=== PATIENT | female | born 1960 | race Two or more races ===

== ENCOUNTER 2018-02-10 13:45 | Emergency (ER) | payer MEDICAID ==
[~2018-02-10] VITALS: Ht 167.6 cm; Wt 113.4 kg
[2018-02-10 14:34] VITALS: BP 130/86
[2018-02-10] MEDS ORDERED: KETOROLAC TROMETH 60MG/2ML VIAL IM ONE (14:45)
[2018-02-10] MEDS ORDERED: metFORMIN HYDROCHLORIDE 500 MG TAB PO ONE (15:15)
== END 2018-02-10 16:05 | disposition home or self-care (01) ==
LOC: ER 13:45
DX: G89.29 Other chronic pain (principal); M54.5 Low back pain; E11.9 Type 2 diabetes mellitus without complications; E78.5 Hyperlipidemia, unspecified; I10 Essential (primary) hypertension; Z88.6 Allergy status to analgesic agent
CPT/HCPCS: 81002; 82962; 96372; 99283; J1885

== ENCOUNTER → 2021-11-26 | Outpatient (CLI) | payer MEDICAID ==
[2021-11-26 08:30] LABS: Basophils # (auto) 0 10 ^3/uL (0-0.2); Basophils % (auto) 0.7 % (0.0-2.0); Eosinophils # (auto) 0.1 10 ^3/uL (0-0.8); Eosinophils % (auto) 2.5 % (0.0-7.0); Hematocrit 39.8 % (36.0-46.0); Hemoglobin 13.8 g/dL (12.2-16.2); Lymphocytes # (auto) 1.7 10 ^3/uL (0.4-5.4); Lymphocytes % (auto) 31.7 % (10.0-50.0); Mean Corpuscular Hemoglobin 30.9 pg (28.0-32.0); Mean Corpuscular Hgb Conc. 34.7 g/dL (32.0-36.0); Mean Corpuscular Volume 89.2 fL (80.0-100.0); Monocytes # (auto) 0.2 10 ^3/uL (0-1.3); Monocytes % (auto) 4.4 % (0.0-12.0); Neutrophils # (auto) 3.2 10 ^3/uL (1.6-8.6); Neutrophils % (auto) 60.7 % (37.0-80.0); Nucleated Red Blood Cells % 0.1 %; Red Blood Cells 4.46 10^6/uL (4.0-5.20); Red Cell Distribution Width 13.1 % (11.8-14.3); White Blood Cell 5.3 10^3/uL (4.4-10.8)
[2021-11-26 08:56] LABS: Albumin 3.3 g/dL (3.4-5.0); Calcium 8.8 mg/dL (8.5-10.1); Potassium 4.6 mmol/L (3.5-5.1)
[2021-11-26 09:01] LABS: BUN/Creatinine Ratio 15.4; Bilirubin, Total 1.2 mg/dL (0.2-1.0); Total Protein 7.3 g/dL (6.4-8.2)
== END | disposition home or self-care (01) ==
LOC: LAB 07:54
PROVIDERS: ATTEND Nurse Practitioner Family
DX: Z00.00 Encounter for general adult medical examination without abnormal findings (principal); K76.0 Fatty (change of) liver, not elsewhere classified; E78.5 Hyperlipidemia, unspecified; M54.50 Low back pain, unspecified; I10 Essential (primary) hypertension; E11.319 Type 2 diabetes mellitus with unspecified diabetic retinopathy without macular edema; E11.42 Type 2 diabetes mellitus with diabetic polyneuropathy
CPT/HCPCS: 36415; 80053; 80061; 83036; 84439; 84443; 85025

== ENCOUNTER 2022-01-22 07:31 | Emergency (ER) | payer MEDICAID ==
[~2022-01-22] VITALS: Ht 167.6 cm; Wt 250.0 kg
[2022-01-22 08:05] LABS: Urine WBC None Seen /hpf (0 - 5)
[2022-01-22 08:12] LABS: Urine Bacteria FEW /hpf (None Seen); Urine Blood Negative /uL (Negative); Urine Specific Gravity 1.017 (1.001-1.035)
[2022-01-22 08:35] LABS: Basophils # (auto) 0 10 ^3/uL (0-0.2); Basophils % (auto) 0.2 % (0.0-2.0); Eosinophils # (auto) 0 10 ^3/uL (0-0.8); Eosinophils % (auto) 0.7 % (0.0-7.0); Hemoglobin 12.3 g/dL (12.2-16.2); Lymphocytes # (auto) 1.3 10 ^3/uL (0.4-5.4); Lymphocytes % (auto) 37.2 % (10.0-50.0); Mean Corpuscular Hemoglobin 30.2 pg (28.0-32.0); Mean Corpuscular Hgb Conc. 34.2 g/dL (32.0-36.0); Mean Corpuscular Volume 88.2 fL (80.0-100.0); Monocytes # (auto) 0.2 10 ^3/uL (0-1.3); Monocytes % (auto) 6.5 % (0.0-12.0); Neutrophils # (auto) 1.9 10 ^3/uL (1.6-8.6); Neutrophils % (auto) 55.4 % (37.0-80.0); Nucleated Red Blood Cells % 0.2 %; Red Blood Cells 4.08 10^6/uL (4.0-5.20); Red Cell Distribution Width 12.9 % (11.8-14.3); White Blood Cell 3.4 10^3/uL (4.4-10.8)
[2022-01-22 08:54] LABS: Calcium 8.4 mg/dL (8.5-10.1); Potassium 4.1 mmol/L (3.5-5.1)
[2022-01-22 08:57] LABS: BUN/Creatinine Ratio 12.2; Bilirubin, Total 0.8 mg/dL (0.2-1.0); Total Protein 7.2 g/dL (6.4-8.2)
[2022-01-22] MEDS ORDERED: methylPREDNISolone SOD SUCC 125 MG/2 ML VL IM ONE (09:30)
[2022-01-22] MEDS ORDERED: METH4PAK PO (09:33)
[2022-01-22] MEDS ORDERED: methylPREDNISolone SOD SUCC 125 MG/2 ML VL IV ONE (10:00)
[2022-01-22 10:18] VITALS: BP 126/72
== END 2022-01-22 10:33 | disposition home or self-care (01) ==
LOC: ER 07:31
DX: U07.1 COVID-19 (principal); E11.9 Type 2 diabetes mellitus without complications; E78.5 Hyperlipidemia, unspecified; I10 Essential (primary) hypertension; F12.10 Cannabis abuse, uncomplicated; Z90.710 Acquired absence of both cervix and uterus
CPT/HCPCS: 36415; 71045; 80053; 81001; 85025; 85379; 87426; 93005; 96374; 99285; J2930

== ENCOUNTER 2023-05-15 11:38 | Emergency (ER) | payer MEDICAID ==
[~2023-05-15] VITALS: Ht 167.6 cm; Wt 113.6 kg
[~2023-05-15 11:38] MED LIST: METH4PAK PO
[2023-05-15 12:17] VITALS: BP 138/73; PULSE 82; RESP 18; TEMP 97.9; O2SAT 97
[2023-05-15] MEDS ORDERED: KETOROLAC TROMETH 60MG/2ML VIAL IM ONE (12:30)
[2023-05-15] MEDS ORDERED: HYDR-4902 PO (13:16)
== END 2023-05-15 13:20 | disposition home or self-care (01) ==
LOC: ER 11:38
DX: S83.92XA Sprain of unspecified site of left knee, initial encounter (principal); S83.91XA Sprain of unspecified site of right knee, initial encounter; E11.9 Type 2 diabetes mellitus without complications; E78.5 Hyperlipidemia, unspecified; I10 Essential (primary) hypertension; F12.10 Cannabis abuse, uncomplicated; Z90.710 Acquired absence of both cervix and uterus; X58.XXXA Exposure to other specified factors, initial encounter; Y93.89 Activity, other specified; Y92.89 Other specified places as the place of occurrence of the external cause; Y99.8 Other external cause status
CPT/HCPCS: 73562; 96372; 99283; J1885

== ENCOUNTER 2023-12-21 09:15 | Emergency (ER) | payer MEDICAID ==
[~2023-12-21] VITALS: Ht 167.6 cm; Wt 119.2 kg
[~2023-12-21 09:15] MED LIST changes: +HYDR-4902 PO
[2023-12-21] MEDS: KETOROLAC TROMETH 30 MG/ML 1ML VIAL IM ONE (10:41)
[2023-12-21] MEDS ORDERED: IBUP1TAB5 PO (11:40)
[2023-12-21 11:48] VITALS: BP 126/81; PULSE 63; RESP 18; TEMP 98.6; O2SAT 96
== END 2023-12-21 11:39 | disposition home or self-care (01) ==
LOC: ER 09:15
DX: M79.645 Pain in left finger(s) (principal); E11.9 Type 2 diabetes mellitus without complications; E78.5 Hyperlipidemia, unspecified; I10 Essential (primary) hypertension; F12.10 Cannabis abuse, uncomplicated; Z88.6 Allergy status to analgesic agent
CPT/HCPCS: 73130; 96372; 99283; J1885

== ENCOUNTER 2024-08-08 23:26 | Emergency (ER) | payer MEDICAID ==
[~2024-08-08] VITALS: Ht 167.6 cm; Wt 106.6 kg
[~2024-08-08 23:26] MED LIST changes: +IBUP1TAB5 PO
[2024-08-08 23:50] VITALS: BP 107/71; RESP 17; O2SAT 97
[2024-08-09 00:37] VITALS: PULSE 76
--- NOTE | 2024-08-09 00:59 | ED.PDOC ---
History of Present Illness HPI Comments 63-YEAR-OLD FEMALE PRESENTS TO ER WITH COMPLAINTS OF FLU-LIKE SYMPTOMS X5 DAYS. PATIENT REPORTS THAT SHE HAS BEEN EXPERIENCING SINUS CONGESTION, BODY ACHES AND DECREASED APPETITE X5 DAYS WITH ASSOCIATED LOWER BACK PAIN X4 DAYS. REPORTS SHE HAS BEEN AROUND OTHER SICK CONTACTS AT HOME. SHE RATES HER CURRENT PAIN A 10/10 TO LOWER LUMBAR SPINE. STATES THAT SHE LAST TOOK A NORCO YESTERDAY WITHOUT RELIEF. PATIENT PRESENTS TO ER AMBULATORY ON ARRIVAL, WITH STEADY GAIT, IN NO DISTRESS AND STATES SHE HAD SIMILAR SYMPTOMS BEFORE WHEN SHE "HAD COVID". 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 SEARCH MARKETING ANALYST Hx Family History Family History: Unknown, Family hx of heart codey Social History Smoker: Non-Smoker Alcohol: Denies ETOH Use Drugs: Marijuana Lives In: Home Constitutional: No Symptoms Reported EENTM: See HPI Respiratory: No Symptoms Reported Cardiovascular: No Symptoms Reported Gastrointestinal: See HPI Genitourinary: No Symptoms Reported Neurological: No Symptoms Reported Musculoskeletal: See HPI Integumentary: No Symptoms Reported Allergic/Immunocompromised: others (DENIES) Hematologic/Lymphatic: No Symptoms Reported Endocrine: No Symptoms Reported Psychiatric: No symptoms Reported Physical Exam General Appearance: No Apparent Distress, Obese HEENT: Normal ENT Inspection, PERRL/EOMI, Pharynx Normal, TMs Normal Neck: Full Range of Motion, Non-Tender, Normal Respiratory: Chest Non-Tender, Lungs Clear, No Accessory Muscle Use, No Respiratory Distress, Normal Breath Sounds Cardiovascular: No Murmur, No Gallop, Regular Rate/Rhythm Breast Exam: Deferred Gastrointestinal: No Organomegaly, Non Tender, No Pulsatile Mass, Normal Bowel Sounds, Soft Genitalia: Deferred Pelvic: Deferred Rectal: Deferred Extremities: Normal capillary refill, Normal range of motion Musculoskeletal : Extremity Location: Back (TTP CENTRALIZED TO LOWER LUMBAR SPINE NOTED. NO SKIN CHANGES NOTED. STEADY GAIT APPRECIATED) Neurologic: Alert, sneller hand II-XII nml as Tested, No Motor Deficits, Normal Affect, Normal Mood, No Sensory Deficits Cerebellar Function: Normal Reflexes: Normal Skin: Dry, Normal Color, Warm Lymphatic: No Adenopathy Was a procedure done? Was a procedure done?: No Sedation Sedation?: No Fever Differential Dx Differential Diagnosis: Pneumonia, Sepsis, Pharyngitis, Other (COVID-19) X-Ray, Labs, Meds, VS Vital Signs Date Time Temp Pulse Resp B/P (MAP) Pulse Ox O2 Delivery O2 Flow Rate FiO2 08/09/24 01:09 Room Air* 0 21 08/08/24 23:50 97.6 83 17 107/71 (83) 97 Lab Test 08/09/24 01:09 08/09/24 00:55 08/09/24 00:31 Range/Units White Blood Count 4.0 L 4.4-10.8 10^3/uL Red Blood Count 4.20 4.0-5.20 10^6/uL Hemoglobin 13.1 12.2-16.2 g/dL Hematocrit 37.5 36.0-46.0 % Mean Corpuscular Volume 89.4 80.0-100.0 fL Mean Corpuscular Hemoglobin 31.3 28.0-32.0 pg Mean Corpuscular Hemoglobin Concent 35.0 32.0-36.0 g/dL Red Cell Distribution Width 13.7 11.8-14.3 % Platelet Count 210 140-450 10^3/uL Mean Platelet Volume 8.4 6.9-10.8 fL Neutrophils (%) (Auto) 52.0 37.0-80.0 % Lymphocytes (%) (Auto) 40.2 10.0-50.0 % Monocytes (%) (Auto) 6.5 0.0-12.0 % Eosinophils (%) (Auto) 0.7 0.0-7.0 % Basophils (%) (Auto) 0.6 0.0-2.0 % Neutrophils # (Auto) 2.1 1.6-8.6 10 ^3/uL Lymphocytes # (Auto) 1.6 0.4-5.4 10 ^3/uL Monocytes # (Auto) 0.3 0-1.3 10 ^3/uL Eosinophils # (Auto) 0 0-0.8 10 ^3/uL Basophils # (Auto) 0 0-0.2 10 ^3/uL Nucleated Red Blood Cells 0.0 % Sodium Level 134 L 136-145 mmol/L Potassium Level 3.8 3.5-5.1 mmol/L Chloride Level 101 98-107 mmol/L Carbon Dioxide Level 23 20-31 mmol/L Anion Gap 10 5-15 Blood Urea Nitrogen 8 L 9-23 mg/dL Creatinine 0.71 0.550-1.02 mg/dL Glomerular Filtration Rate Calc 95 >90 mL/min BUN/Creatinine Ratio 11.3 10.0-20.0 Serum Glucose 237 H 74-106 mg/dL Calcium Level 8.8 8.7-10.4 mg/dL Influenza Type A Antigen Positive Negative Influenza Type B Antigen Negative Negative SARS-CoV-2 Antigen (Rapid) Negative NEGATIVE Urine Color Light-yellow Yellow Urine Clarity Clear Clear Urine pH 6.0 5.0-9.0 Urine Specific [place] 1.013 1.001-1.035 Urine Protein Negative Negative Urine Ketones Negative Negative Urine Blood Negative Negative /uL Urine Nitrite Negative Negative Urine Bilirubin Negative Negative Urine Urobilinogen Normal Negative mg/dL Urine Leukocyte Esterase Negative Negative /uL Urine RBC 1 0 - 4 /hpf Urine Microscopic WBC 1 0-5 /HPF Urine Squamous Epithelial Cells None seen <5 /hpf Urine Bacteria None seen None Seen /hpf Urine Glucose 3+ H Normal mg/dL Current Medications Medications (Trade) Dose Ordered Sig/Edenilson Route Start Time Stop Time Status Last Admin Acetaminophen/ Codeine Phosphate (Tylenol W/Cod #3 Tablet) 1 tab ONCE ONCE PO 08/09/24 02:00 08/09/24 02:01 DC 08/09/24 02:00 Ondansetron HCl (Zofran Po) 4 mg ONCE ONCE PO 08/09/24 02:00 08/09/24 02:01 DC 08/09/24 02:00 CBC REVIEWED-WBC 4.0 BMP REVIEWED-SODIUM 134, SERUM GLUCOSE 237 RESULTS REVIEWED-INFLUENZA A POSITIVE URINALYSIS REVIEWED-URINE GLUCOSE 3+, URINE BLOOD NEGATIVE, URINE NITRITES NEGATIVE, URINE LEUKOCYTE ESTERASE NEGATIVE TYLENOL # THREE ONE TABLET P.O. ORDERED ZOFRAN 4 MG P.O. ORDERED PATIENT PROVIDED P.O. FLUIDS DURING ER VISIT PATIENT HAD IMPROVEMENT IN SYMPTOMS, TOLERATING P.O. INTAKE WELL AND IN NO DISTRESS PRIOR TO DISCHARGE ADVISED TO FOLLOW UP WITH PCP IN 1-2 DAYS PATIENT VERBALIZED UNDERSTANDING AND AGREEABLE WITH CURRENT PLAN OF CARE ADVISED TO RETURN TO ER IMMEDIATELY IF SYMPTOMS WORSEN Time of 1ST Reevaluation: 00:52 Reevaluation 1ST: N/A Time of 2ND Reevaluation: 02:10 Reevaluation 2ND: Improved Patient Education/Counseling: Diagnosis, Treatment, Prognosis, Need For Follow Up Family Education/Counseling: No Family Present Departure 1 Departure Time of Disposition: 02:12 Impression: Primary Impression: Influenza A Disposition: 01 HOME / SELF CARE / HOMELESS Condition: Stable e-Prescriptions Ibuprofen Micronized (Ibuprofen) 400 Mg Tab 400 MG PO Q6HPRN, #30 TAB 0 Refills Prov: SUN BONILLA 08/09/24 Oseltamivir Phosphate (Tamiflu) 75 Mg Cap 1 CAP PO BID for 5 Days, #10 CAP 0 Refills Prov: SUN BONILLA 08/09/24 Discharged With: Friend Critical Care Note Critical Care Time?: No Stability Stability form required: No Heart Score Heart Score: Heart Score Response (Comments) Value History N/A 0 EKG N/A 0 Age N/A 0 Risk Factors N/A 0 Troponin N/A 0 Total 0 SUN BONILLA Aug 09, 2024 00:59
[2024-08-09 01:09] LABS: Urine Bacteria None Seen /hpf (None Seen)
[2024-08-09 01:23] LABS: Urine Blood Negative /uL (Negative); Urine Clarity Clear (Clear); Urine Color Light-Yellow (Yellow); Urine Protein, UAD Negative (Negative); Urine Specific Gravity 1.013 (1.001-1.035); Urine Squamous Epithelial Cell None Seen /hpf (<5); Urine Urobilinogen Normal (Negative); Urine WBC 1 /HPF (0-5)
[2024-08-09 01:26] LABS: Basophils # (auto) 0 10 ^3/uL (0-0.2); Basophils % (auto) 0.6 % (0.0-2.0); Eosinophils # (auto) 0 10 ^3/uL (0-0.8); Eosinophils % (auto) 0.7 % (0.0-7.0); Hematocrit 37.5 % (36.0-46.0); Hemoglobin 13.1 g/dL (12.2-16.2); Lymphocytes # (auto) 1.6 10 ^3/uL (0.4-5.4); Lymphocytes % (auto) 40.2 % (10.0-50.0); Mean Corpuscular Hemoglobin 31.3 pg (28.0-32.0); Mean Corpuscular Volume 89.4 fL (80.0-100.0); Monocytes # (auto) 0.3 10 ^3/uL (0-1.3); Monocytes % (auto) 6.5 % (0.0-12.0); Neutrophils # (auto) 2.1 10 ^3/uL (1.6-8.6); Platelet Count (auto) 210 10^3/uL (140-450); Red Cell Distribution Width 13.7 % (11.8-14.3)
[2024-08-09 01:36] LABS: Chloride 101 mmol/L (98-107); Potassium 3.8 mmol/L (3.5-5.1)
[2024-08-09 01:37] LABS: Anion Gap 10 (5-15); Calcium 8.8 mg/dL (8.7-10.4); Carbon Dioxide 23 mmol/L (20-31)
[2024-08-09 01:42] LABS: BUN/Creatinine Ratio 11.3 (10.0-20.0)
[2024-08-09 01:44] LABS: Blood Urea Nitrogen 8 mg/dL (9-23); Glucose 237 mg/dL (74-106); Sodium 134 mmol/L (136-145)
[2024-08-09] MEDS: ACETAMINOPHEN/CODEINE#3 (300/30mg) TAB PO ONE (02:00)
[2024-08-09] MEDS: ONDANSETRON ODT 4 MG TAB PO ONE (02:00)
[2024-08-09 02:04] LABS: COVID19 ANTIGEN SOFIA FIA NEGATIVE (NEGATIVE); Rapid Influenza B Negative (Negative)
[2024-08-09 02:05] LABS: Rapid Influenza A Positive (Negative)
[2024-08-09] MEDS ORDERED: OSEL75CA5 PO (02:08)
[2024-08-09] MEDS ORDERED: IBUP1TAB4 PO (02:11)
--- NOTE | 2024-08-09 06:45 | ECG ---
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
== END 2024-08-09 02:16 | disposition home or self-care (01) ==
LOC: ER 23:26
DX: J10.1 Influenza due to other identified influenza virus with other respiratory manifestations (principal); I10 Essential (primary) hypertension; E11.9 Type 2 diabetes mellitus without complications; I49.8 Other specified cardiac arrhythmias; M19.90 Unspecified osteoarthritis, unspecified site; Z20.822 Contact with and (suspected) exposure to COVID-19; Z90.710 Acquired absence of both cervix and uterus
CPT/HCPCS: 36415; 80048; 81001; 85025; 87426; 87804; 93005; 99284; Q0162